=== PATIENT | female | born 2000 | race Caucasian/White ===

== ENCOUNTER → 2021-04-21 | Outpatient (CLI) | payer MEDICAID, SELFPAY ==
[2021-04-21 10:40] LABS: Absolute Lymphocyte Count 2.03 X10^3/uL (0.83-4.51); Absolute Neutrophil Count 5.7 X10^3/uL (2.0-7.7); Basophil# 0.03 X10^3/uL; Basophil% 0.4 % (0-1); Eosinophil# 0.09 X10^3/uL; Eosinophils% 1.1 % (0-5); Hemoglobin 15.4 g/dL (12.0-15.0); Lymphocyte # 2.03 X10^3/ul (0.83-4.51); Lymphocyte % 24.7 % (19-41); Mean Corp Hgb Conc 31.4 g/dL (32-36); Mean Corpuscular Hgb 26.5 pg (27.0-32.0); Mean Corpuscular Volume 84.3 fL (81-99); Monocyte# 0.38 X10^3/uL; Monocyte% 4.6 % (0-10); NRBC Flagged by Analyzer 0 % (0-5); Neutrophil # 5.66 X10^3/uL (2.7-7.7); Platelet Count 387 K/mm3 (150-450); RBC Distribution Width SD 42.5 fl (35.1-43.9); Red Blood Count 5.81 M/mm3 (4.2-5.4); White Blood Count 8.2 K/mm3 (4.4-11.0)
[2021-04-21 11:03] LABS: Hemoglobin A1c 5.3 % (3.8-5.6)
[2021-04-21 11:12] LABS: T3 Total - Triiodothyronine 1.19 ng/mL (0.6-1.81)
[2021-04-21 11:17] LABS: ALB/GLOB Ratio 0.8 RATIO (0.9-2.4); AST(SGOT) 27 U/L (15-37); Alanine Aminotransfer ALT/SGPT 61 U/L (13-56); Albumin, Serum 3.4 g/dL (3.2-5.0); Alkaline Phosphatase 112 U/L (45-117); Anion Gap 6 (5-15); BUN 13 mg/dL (7-18); BUN/Creat Ratio 21.9 RATIO (10-20); Calcium,Total 9.1 mg/dL (8.5-10.1); Chloride 108 mmol/L (98-107); Cholesterol 175 mg/dL (200); Creatinine, Serum 0.59 mg/dL (0.55-1.02); EST Glomerular Filtration Rate 136 mL/min (>60); Est Glom Filt Rate - Afr Amer 164 mL/min (>60); Globulin 4.5 g/dL (2.2-4.2); Glucose 89 mg/dL (74-106); High Density Lipoprotein 36 mg/dL; Potassium 3.9 mmol/L (3.5-5.1); Protein, Total 7.9 g/dL (6.4-8.2); Sodium Level 140 mmol/L (136-145); T4 Total, Thyroxin 10.9 ug/dL (4.8-13.9); Thyroid Stim Hormone (TSH) 0.64 uIU/mL (0.358-3.74); Triglycerides 138 mg/dL; Very Low Density Lipoprotein 28 mg/dL (5-40)
== END | disposition home or self-care (01) ==
LOC: LABSPEC 09:53
PROVIDERS: PCP Pediatrics
DX: F32.3 Major depressive disorder, single episode, severe with psychotic features (principal); Z79.899 Other long term (current) drug therapy
CPT/HCPCS: 36415; 80053; 80061; 83036; 84436; 84443; 84480; 85025

== ENCOUNTER 2021-10-10 19:39 | Emergency (ER) | payer MEDICAID, OTHER, SELFPAY ==
[2021-10-10 19:40] VITALS: BP 127/75; PULSE 78; RESP 18; TEMP 36.2; O2SAT 99; BMI 38.3
--- NOTE | 2021-10-10 20:19 | EX.ED.DYSGE1 ---
HPI History of Present Illness Chief Complaint: Syncope Informant: patient and parent Onset/Context/Timing Onset: Today Context: Sudden Onset PFSH PFSH Medical History (Updated 10/10/21 @ 19:57 by Kandy Perla) Anxiety Cerebral palsy Panic disorder Allergy/AdvReac Type Severity Reaction Status Date / Time carbamazepine [From Tegretol] Allergy NEEDS Verified 10/10/21 19:48 FOLLOW-UP phenytoin [From Dilantin] Allergy NEEDS Verified 10/10/21 19:48 FOLLOW-UP Surgical History (Updated 10/10/21 @ 19:57 by Kandy Perla) SIX SIGMA PROJECT MANAGER (ventriculoperitoneal) shunt status Social History Smoking Status: Never smoker EXAM Physical Exam Const Vital Signs: 10/10/21 19:40 10/10/21 19:50 Temperature 97.1 F L Temperature Source Temporal Pulse Rate 78 Respiratory Rate 18 Respiratory Effort Normal Non-Labored Respiratory Pattern Normal Blood Pressure 127/75 H Blood Pressure Mean 92 Pulse Ox 99 Oxygen Delivery Method Room Air Discharge Plan Triage Chief Complaint: Syncope ED Provider: Zuleima Botello Dx/Rx/DC Orders Primary Care Provider: Earlene Jones
--- NOTE | 2021-10-10 20:24 | CT_ITS ---
STUDY: CT BRAIN WITHOUT CONTRAST REASON FOR EXAM: Female, 21 years old. Headache RADIATION DOSAGE (If Supplied By Facility): CTDIvol = ( 44.99 ) mGy, DLP = ( 846.73 ) mGycm TECHNIQUE: Transaxial CT imaging of the brain was performed without administration of intravenous contrast material. Individualized dose optimization techniques were used for this CT. COMPARISON: No relevant priors. FINDINGS: 2 separate ENTRY LEVEL MECHANICAL ENGINEER shunts are noted both entering the skull in the right temporal region, the other in the left frontal region. No shunt kink or disruption noted. Normal soft tissue structures. Normal calvarium. Since there are no previous studies available for comparison, I cannot determine if the ventricles have changed in size over time. 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 No acute hemorrhage midline shift or mass effect. There are no findings of an acute ischemic infarction. Normal visualized paranasal sinuses. 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
--- NOTE | 2021-10-10 20:24 | RAD_ITS ---
STUDY: X-RAY - ABDOMEN/PELVIS REASON FOR EXAM: Female, 21 years old. vp research shunt TECHNIQUE: Frontal view COMPARISON: None. FINDINGS: There is an unremarkable bowel gas pattern. There is no demonstrated free abdominal air. There is a shunt catheter extending to the pelvis. Normal soft tissue structures. Normal visualized osseous structures. RAD/Abdomen Single View IMPRESSION: No acute pathology of the abdomen and pelvis. Electronically Signed: Michael Barber DO at 21:44 EDT ,
[2021-10-10 20:46] LABS: Absolute Neutrophil Count 15.4 X10^3/uL (2.0-7.7); Basophil# 0.03 X10^3/uL; Basophil% 0.2 % (0-1); Hematocrit 43.6 % (37-47); Hemoglobin 14.5 g/dL (12.0-15.0); Lymphocyte % 5.4 % (19-41); Mean Corp Hgb Conc 33.3 g/dL (32-36); Mean Corpuscular Hgb 25.6 pg (27.0-32.0); Mean Corpuscular Volume 76.9 fL (81-99); Mean Platelet Vol. 10.7 fl (6.2-12.0); Monocyte# 0.35 X10^3/uL; Monocyte% 2.1 % (0-10); NRBC Flagged by Analyzer 0 % (0-5); Neutrophil # 15.37 X10^3/uL (2.7-7.7); Neutrophil % 91.9 % (47-70); Platelet Count 503 K/mm3 (150-450); RBC Distribution Width CV 14.5 % (11.6-14.6); RBC Distribution Width SD 39.5 fl (35.1-43.9); Red Blood Count 5.67 M/mm3 (4.2-5.4); White Blood Count 16.7 K/mm3 (4.4-11.0)
[2021-10-10 21:05] LABS: Anion Gap 8 (5-15); BUN 10 mg/dL (7-18); BUN/Creat Ratio 13.6 RATIO (10-20); Calcium,Total 9.7 mg/dL (8.5-10.1); Chloride 106 mmol/L (98-107); Creatinine, Serum 0.74 mg/dL (0.55-1.02); EST Glomerular Filtration Rate 105 mL/min (>60); Est Glom Filt Rate - Afr Amer 128 mL/min (>60); Estimated Creatinine Clearance 95.11 ml/min; Glucose 216 mg/dL (74-106); Potassium 5.4 mmol/L (3.5-5.1); Sodium Level 136 mmol/L (136-145)
--- NOTE | 2021-10-10 21:05 | RAD_ITS ---
STUDY: X-RAY CHEST REASON FOR EXAM: Female, 21 years old. vp human resources shunt TECHNIQUE: Frontal and lateral views COMPARISON: None. FINDINGS: There is a shunt catheter along the right hemithorax. The lungs are clear and expanded. There is no demonstrated pleural abnormality. Normal size heart. Normal mediastinum and jackie. Normal visualized pulmonary arteries. Normal visualized aortic arch and descending thoracic aorta. Normal visualized thoracic spine. Normal visualized ribs, clavicles, and shoulders. There is no demonstrated abnormality of the visualized soft tissue structures of the upper abdomen. RAD/Chest PA and Lateral IMPRESSION: Normal x-ray examination of the chest. Electronically Signed: Michael Barber DO at 21:43 EDT Reading Location ID and State: [facility] / [place] Tel [phone], Service support ,
--- NOTE | 2021-10-10 21:07 | EDS_ITS ---
HPI <Dr. Zuleima Botello MD - Last Filed: 10/10/21 23:58> History of Present Illness Chief Complaint: Syncope <MAURICIO LIM - Last Filed: 10/10/21 23:04> History of Present Illness Informant: patient and parent Onset/Context/Timing Onset: Today Narrative Narrative: Patient presents by EMS following unresponsive episode just prior to arrival. Per mother, just as she was putting the patient to bed the patient began shaking her legs for approximately 30 seconds which was accompanied by nonresponsiveness which lasted 10 minutes following that episode. Per the mother the patient has no history of seizures. Patient states she woke up this morning and ate breakfast. The patient vomited following breakfast and has not felt well since. Patient has had decreased oral intake today, but denies other complaints. Patient denies headache, fever chills. Patient's mother does report recent stress at home with father who is ill and patient's power chair broke. This has caused the patient to have increased panic episodes this week, with 3 episodes today. PFSH <Dr. Zuleima Botello MD - Last Filed: 10/10/21 23:58> PFS Medical History Anxiety Cerebral palsy Panic disorder Home Medications baclofen 20 mg PO TID 10/10/21 [History Last Taken Unknown] fluoxetine 20 mg PO DAILY 10/10/21 [History Last Taken Unknown] hydroxyzine HCl 5 mg PO TID 10/10/21 [History Last Taken Unknown] Allergy/AdvReac Type Severity Reaction Status Date / Time carbamazepine [From Tegretol] Allergy NEEDS Verified 10/10/21 19:48 FOLLOW-UP phenytoin [From Dilantin] Allergy NEEDS Verified 10/10/21 19:48 FOLLOW-UP Surgical History CLASS A REGIONAL DRIVERS (ventriculoperitoneal) shunt status Social History Smoking Status: Never smoker <MAURICIO LIM - Last Filed: 10/10/21 23:04> ROS ED Constitutional Constitutional ED: Reports other Details: Malaise ; Denies chills, fever(s) or sweats Eyes Eyes: Denies change in vision ENT ENT ED: Denies ear pain, rhinorrhea or sore throat Cardiovascular Cardiovascular: Denies chest pain Respiratory/Chest Respiratory/Chest: Denies cough or dyspnea Gastrointestinal Gastrointestinal: Reports nausea and vomiting; Denies abdominal pain Genitourinary Genitourinary ED: Reports LMP (females 10-50) Details: Comment: (10/04/21) and other Details: patient is incontinent of both urine and stool. Musculoskeletal Musculoskeletal: Denies myalgias Integumentary Denies rash Neurologic Neurologic: Denies headache(s) or weakness Psychiatric Psychiatric: Reports anxiety; Denies depression EXAM <Dr. Zuleima Botello MD - Last Filed: 10/10/21 23:58> Physical Exam Const Vital Signs: 10/10/21 19:40 10/10/21 19:50 10/10/21 21:46 Temperature 97.1 F L Temperature Source Temporal Pulse Rate 78 79 Respiratory Rate 18 18 Respiratory Effort Normal Non-Labored Respiratory Pattern Normal Blood Pressure 127/75 H 123/87 H Blood Pressure Mean 92 99 Pulse Ox 99 100 Oxygen Delivery Method Room Air Room Air 10/10/21 23:28 Temperature Temperature Source Pulse Rate 108 H Respiratory Rate 18 Respiratory Effort Respiratory Pattern Blood Pressure 122/86 H Blood Pressure Mean Pulse Ox 96 Oxygen Delivery Method <MAURICIO LIM - Last Filed: 10/10/21 23:04> Physical Exam Const Vital Signs: 10/10/21 19:40 10/10/21 19:50 10/10/21 21:46 Temperature 97.1 F L Temperature Source Temporal Pulse Rate 78 79 Respiratory Rate 18 18 Respiratory Effort Normal Non-Labored Respiratory Pattern Normal Blood Pressure 127/75 H 123/87 H Blood Pressure Mean 92 99 Pulse Ox 99 100 Oxygen Delivery Method Room Air Room Air 10/10/21 23:28 Temperature Temperature Source Pulse Rate 108 H Respiratory Rate 18 Respiratory Effort Respiratory Pattern Blood Pressure 122/86 H Blood Pressure Mean Pulse Ox 96 Oxygen Delivery Method Positive well nourished and well developed General Appearance ED: well developed HEENT Reports moist mucous membranes Negative for trauma or tenderness Eyes PERRL and EOMs intact bilaterally Eyes Narrative: Redness inferior to right eye. Per mother, this is being treated by [facility] for 2 months now. Neck no lymphadenopathy and supple Chest Wall inspection of chest normal and palpation of chest normal Resp normal respiratory effort and clear to auscultation bilaterally Cardio regular rate and regular rhythm GI normal to inspection, nondistended, normoactive bowel sounds Palpation: soft Narrative: No suprapubic tenderness. Back/Spine no CVA tenderness Extremity normal to inspection Neuro oriented x3 Sensorium / Orientation: alert Psych mental status grossly normal Skin no rashes or lesions noted [facility] <Dr. Zuleima Botello MD - Last Filed: 10/10/21 23:58> [facility] Lab Data Labs: Laboratory Results - last 24 hr 10/10/21 10/10/21 10/10/21 20:37 20:37 20:37 WBC 16.7 H RBC 5.67 H Hgb 14.5 Hct 43.6 MCV 76.9 L MCH 25.6 L MCHC 33.3 RDW Std Deviation 39.5 RDW Coeff of Marina 14.5 Plt Count 503 H MPV 10.7 Immature Gran % (Auto) 0.400 Neut % (Auto) 91.9 H Lymph % (Auto) 5.4 L [place] % (Auto) 2.1 Eos % (Auto) 0.0 Baso % (Auto) 0.2 Absolute Neuts (auto) 15.4 H Absolute Lymphs (auto) 0.90 Nucleated RBC % 0 Sodium 136 Potassium 5.4 H Chloride 106 Carbon Dioxide 22.0 Anion Gap 8 BUN 10 Creatinine 0.74 Estim Creat Clear Calc 95.11 Est GFR (MDRD) Af Amer 128 Est GFR (MDRD) Non-Af 105 BUN/Creatinine Ratio 13.6 Glucose 216 H Calcium 9.7 Serum , Qual NEGATIVE Radiography Diagnostic Testing: Clinical Impression(s) from Imaging Studies Brain CT 10/10/21 20:24 IMPRESSION: 2 separate CLASS A REGIONAL DRIVERS shunt tubes noted in satisfactory position No acute hemorrhage midline shift or mass effect 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 Electronically Signed: Michael Barber DO at 21:44 EDT , Chest X-Ray 10/10/21 21:05 IMPRESSION: Normal x-ray examination of the chest. Electronically Signed: Michael Barber DO at 21:43 EDT , Treatment and Re-Evaluation Narrative: Patient seen and evaluated with EDITOR IN CHIEF NEWSPAPER student. I personally interviewed and examined the patient. I was involved in all aspects of patient's orders, interpretation of results, and treatment. Patient presents via EMS after syncopal episode with possible seizure activity. Mother states patient has frequent syncope with panic attacks and anxiety. There has been increase stressors in the home recently. Ashly mom put patient to bed and laid her prone. She had about 30 seconds of leg twitching followed by a 10-minute period of decreased responsiveness. On arrival to the emergency room patient is alert and at baseline. Patient sitting upright in bed no acute distress. Head and neck examination with chronic changes. No acute trauma. Heart is slightly tachycardic and regular. Lung sounds are clear. Abdomen is soft nontender. Lower extremity examination reveals muscle wasting. Patient sent for CT scan of the head as well as CLASS A REGIONAL DRIVERS shunt series. Lab work obtained. CT scan reveals no acute abnormalities with function of CLASS A REGIONAL DRIVERS shunt. Chest and abdominal x-ray per my interpretation reveals the shunt line to be in good position with no abnormalities. Lab work significant only for white count of 16. This may be reactive from potential seizure. Long conversation was had with mother and patient at bedside. She is at baseline currently. We do not know at this time whether this was potential syncope with clonic activity versus new onset seizure. Mother feels comfortable caring for her at home and will talk with the patient's neurosurgeon tomorrow to determine what further work-up needs to be performed. Patient given 1 dose of Ativan here to help with her anxiety. <MAURICIO LIM - Last Filed: 10/10/21 23:04> [facility] Narrative Medical decision making narrative: Patient placed on cardiac cath lab manager. CBC, BMP, serum hCG, and shunt series ordered with CT of the head ordered. Lab Data Attestation: I reviewed the patient's lab results. Labs: Laboratory Results - last 24 hr 10/10/21 10/10/21 10/10/21 20:37 20:37 20:37 WBC 16.7 H RBC 5.67 H Hgb 14.5 Hct 43.6 MCV 76.9 L MCH 25.6 L MCHC 33.3 RDW Std Deviation 39.5 RDW Coeff of [place] 14.5 Plt Count 503 H MPV 10.7 Immature Gran % (Auto) 0.400 Neut % (Auto) 91.9 H Lymph % (Auto) 5.4 L [place] % (Auto) 2.1 Eos % (Auto) 0.0 Baso % (Auto) 0.2 Absolute Neuts (auto) 15.4 H Absolute Lymphs (auto) 0.90 Nucleated RBC % 0 Sodium 136 Potassium 5.4 H Chloride 106 Carbon Dioxide 22.0 Anion Gap 8 BUN 10 Creatinine 0.74 Estim Creat Clear Calc 95.11 Est GFR (MDRD) Af Amer 128 Est GFR (MDRD) Non-Af 105 BUN/Creatinine Ratio 13.6 Glucose 216 H Calcium 9.7 Serum , Qual NEGATIVE Radiography Diagnostic Testing: Clinical Impression(s) from Imaging Studies Brain CT 10/10/21 20:24 IMPRESSION: 2 separate CLASS A REGIONAL DRIVERS shunt tubes noted in satisfactory position No acute hemorrhage midline shift or mass effect 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 Electronically Signed: Michael Barber DO at 21:44 EDT , Chest X-Ray 10/10/21 21:05 IMPRESSION: Normal x-ray examination of the chest. Electronically Signed: Michael Barber DO at 21:43 EDT , Treatment and Re-Evaluation Narrative: Brain CT, KUB x-ray, and chest x-ray show no acute abnormality or shunt dysfunction. BMP shows potassium of 5.4 but hemolysis noted on specimen. White blood cell count elevated on CBC at 16.7. Urinalysis ordered. Per nursing staff, multiple attempts at straight cath unsuccessful. On reevaluation, patient is resting comfortably in the bed. Imaging and blood work results discussed with patient and mother. Discharge Plan Triage Chief Complaint: Syncope ED Provider: Zuleima Botello Dx/Rx/DC Orders Clinical Impression: Seizure Instructions: ED Seizure New Onset Unknown ... Prescriptions: No Action baclofen 20 mg tablet 20 mg PO TID RF: 0 fluoxetine 20 mg capsule 20 mg PO DAILY RF: 0 hydroxyzine HCl 10 mg/5 mL solution 5 mg PO TID RF: 0 Primary Care Provider: Earlene Jones Referrals: Earlene Jones MD [Primary Care Provider] - Activity Restrictions/Additional Instructions: As discussed, please follow-up with your neurosurgeon by phone on Monday. Disposition Disposition: Home, Self Care Discharge Date/Time: 10/10/21 23:42
[2021-10-10 21:08] LABS: Internal QC Validated? YES +Cl - CLEAR BKGD; Pregnancy, Serum, hCG Quali. NEGATIVE Negative
[2021-10-10 21:46] VITALS: BP 123/87; PULSE 79; RESP 18; O2SAT 100
--- NOTE | 2021-10-10 22:51 | NURSING ---
Attempted to straight cath Yue and I was unsuccessful. mavis notified. Pt heart rate up into 160. Pt very anxious
[2021-10-10] MEDS: LORazepam 0.5 MG Tablet PO (23:25)
[2021-10-10 23:28] VITALS: BP 122/86; PULSE 108; RESP 18; O2SAT 96
== END 2021-10-10 23:42 | disposition home or self-care (01) ==
PROVIDERS: Emergency Provider Emergency Medicine; PCP Pediatrics; Visit Provider Emergency Medicine
DX: R40.4 Transient alteration of awareness (principal); G80.9 Cerebral palsy, unspecified; F41.0 Panic disorder [episodic paroxysmal anxiety]; Z98.2 Presence of cerebrospinal fluid drainage device
CPT/HCPCS: 70450; 71046; 74018; 80048; 84703; 85025; 99285; J7030; A4216

== ENCOUNTER → 2021-12-24 | Outpatient (CLI) | payer MEDICARE, MEDICAID, OTHER, SELFPAY ==
[2021-12-24 12:09] LABS: Absolute Lymphocyte Count 2.22 X10^3/uL (0.83-4.51); Absolute Neutrophil Count 4.9 X10^3/uL (2.0-7.7); Basophil# 0.03 X10^3/uL; Basophil% 0.4 % (0-1); Eosinophil# 0.15 X10^3/uL; Eosinophils% 1.9 % (0-5); Hematocrit 42.9 % (37-47); Hemoglobin 13.7 g/dL (12.0-15.0); Lymphocyte # 2.22 X10^3/ul (0.83-4.51); Lymphocyte % 28.8 % (19-41); Mean Corp Hgb Conc 31.9 g/dL (32-36); Mean Corpuscular Hgb 25.9 pg (27.0-32.0); Mean Corpuscular Volume 81.1 fL (81-99); Mean Platelet Vol. 11.8 fl (6.2-12.0); Monocyte# 0.41 X10^3/uL; Monocyte% 5.3 % (0-10); NRBC Flagged by Analyzer 0 % (0-5); Neutrophil # 4.87 X10^3/uL (2.7-7.7); Neutrophil % 63.3 % (47-70); POSITIVE COUNT YES; Platelet Count 321 K/mm3 (150-450); RBC Distribution Width CV 14.6 % (11.6-14.6); RBC Distribution Width SD 42.8 fl (35.1-43.9); Red Blood Count 5.29 M/mm3 (4.2-5.4); White Blood Count 7.7 K/mm3 (4.4-11.0)
[2021-12-24 12:32] LABS: Differential Indicated SCAN CRITERIA MET; Platelet Estimate ADEQUATE (ADEQ); Platelet Morphology LARGE; Red Cell Morphology NORM C+C NORMAL (NORM C&C)
[2021-12-24 12:35] LABS: ALB/GLOB Ratio 0.8 RATIO (0.9-2.4); AST(SGOT) 19 U/L (15-37); Alanine Aminotransfer ALT/SGPT 40 U/L (13-56); Albumin, Serum 3.2 g/dL (3.2-5.0); Alkaline Phosphatase 103 U/L (45-117); Anion Gap 7 (5-15); BUN 15 mg/dL (7-18); BUN/Creat Ratio 24.2 RATIO (10-20); Chloride 110 mmol/L (98-107); Creatinine, Serum 0.62 mg/dL (0.55-1.02); EST Glomerular Filtration Rate 129 mL/min (>60); Est Glom Filt Rate - Afr Amer 156 mL/min (>60); Globulin 4.2 g/dL (2.2-4.2); Glucose 168 mg/dL (74-106); Potassium 3.9 mmol/L (3.5-5.1); Protein, Total 7.4 g/dL (6.4-8.2); Sodium Level 139 mmol/L (136-145)
[2021-12-24 17:35] LABS: Hemoglobin A1c 5.5 % (3.8-5.6)
== END | disposition home or self-care (01) ==
LOC: BIMLAB 11:28
PROVIDERS: PCP Internal Medicine; Referring Provider Internal Medicine; Visit Provider Internal Medicine
DX: F32.A Depression, unspecified (principal); F41.9 Anxiety disorder, unspecified; R73.9 Hyperglycemia, unspecified
CPT/HCPCS: 36415; 80053; 83036; 85025

== ENCOUNTER 2022-01-19 14:15 | Outpatient (RCR) | payer MEDICARE, MEDICAID, SELFPAY ==
--- NOTE | 2022-01-19 15:44 | HP.PTEVAL_ITS ---
Patient's Visit Information CONCHIS MOCK is a 21 year old F referred to Physical Therapy by MAXIME Arreola with a diagnosis of OTHER MALAISE. Date of Evaluation: 01/19/22 Physical Therapist: Mayo Padilla PT, Cert MDT, [facility] - Visit Plan Frequency: 1 visit Plan: This patient will benefit from PMD to maximize I with current w/c patient is own grown . This patient is non-ambulatory ,and is dependent with bed mobility supine -sit, transfers dependent with Darryl lift ,BLE lower extremity spasticity with decrease ROM and no muscle strength, along with contractures of elbows and legs ,absent sitting balance . Patient unable to propel w/c due to weakness and ROM BUE . PMD will significantly improve patients ability to participate in MRDL's and use in the home. The patient has mental and capabilities to safely operate a power wheelchair. - Subjective This 21 y/o female presents to physical therapy with w/c evaluation. Patient seen DR recently needing new power wheelchair due to worn out and outgrown power w/c. Patient has cerebral palsy since and is non ambulatory . Patient has Darryl lift with transfers and unable to stand with standing walker. Patient is dependent with bathing ,dressing and self hygiene. Patient has walk in shower shower chair. Patient lives in 2 story farm house with ramp. Patient involved [employer] and Monday . Service Claudine has a friend. Patient had prior PT and aquatic therapy. Patient family does all cooking, cleaning. Patient attends [employer]. Patient has manual w/c, Darryl lift , shower chair. Patient denies paresthesia/tingling. Patient has occasional lumbar pain. Patient has no pressure sore. Patient is incontinence. Patient will benefit from PMD to maximize function. SOCIAL: lives with family - Objective POSTURE: posterior pelvic tilt ,asymmetrical leg Length. Patient is 5'3' and 210 #. SIITING: balance absent. MOBILITY: non-ambulatory ,uses power w/c I. TRANFSERS: Darryl lift. BED MOBILITY: supine -supine dependent. AROM BUE : shoulder flexion 90 degrees , abduction 80 degrees , elbow extension -20 degrees ,flexion 105 degrees. PROM BLE: knee flexion right 90 degrees ,extension 35 degrees bilateral ,left 80 degrees ,hip flexion 80 degrees , hip abduction 10 ,DF -20 degrees. MMT: BUE 3+/5 EXCEPT SHOULDER 3-/4. BLE : 0/5. NEURO: BLE spasticity - Goals Goal 1:: Patient will benefit from new PMD to maximize function I in home for ADLS' - Rehabilitation Potential Physical Therapy Diagnosis: This patient will benefit from PMD to maximize I with current w/c patient is own grown . This patient is non-ambulatory ,and is dependent with bed mobility supine -sit, transfers dependent with Darryl lift ,BLE lower extremity spasticity with decrease ROM and no muscle strength, along with contractures of elbows and legs ,absent sitting balance . Patient unable to propel w/c due to weakness and ROM BUE . PMD will significantly improve patients ability to participate in MRDL's and use in the home. The patient has mental and capabilities to safely operate a power wheelchair. Rehabilitation Potential: Fair - Anticipated Interventions Patient/Client Instruction: Educate patient on: Condition, Plan of Care For the Purpose of:: Other Other: PMD Thank you for the opportunity to evaluate your patient. For Medicare and Medicare HMO plans, please review the plan of care and approve it. It will need to be FAXED BACK to us at [phone] for Medicare purposes. For Medicare only, by signing this I certify the plan of care. Please let me know if there are questions or concerns regarding this plan of care. Physician Signature: Date:
== END 2022-01-19 19:00 | disposition home or self-care (01) ==
LOC: PT 14:15
PROVIDERS: PCP Internal Medicine; Referring Provider Nurse Practitioner Family; Visit Provider Nurse Practitioner Family
DX: R53.81 Other malaise (principal)
CPT/HCPCS: 97163

== ENCOUNTER → 2023-10-30 | Outpatient (CLI) | payer MEDICARE, MEDICAID, SELFPAY ==
[2023-10-30 16:52] LABS: Absolute Lymphocyte Count 3.06 X10^3/uL (0.83-4.51); Absolute Neutrophil Count 7.7 X10^3/uL (2.0-7.7); Basophil# 0.05 X10^3/uL; Basophil% 0.4 % (0-1); Eosinophil# 0.21 X10^3/uL; Eosinophils% 1.8 % (0-5); Hematocrit 45.8 % (37-47); Hemoglobin 14.6 g/dL (12.0-15.0); Lymphocyte # 3.06 X10^3/ul (0.83-4.51); Lymphocyte % 26.2 % (19-41); Mean Corp Hgb Conc 31.9 g/dL (32-36); Mean Corpuscular Volume 81.5 fL (81-99); Mean Platelet Vol. 11.5 fl (6.2-12.0); Monocyte# 0.61 X10^3/uL; Monocyte% 5.2 % (0-10); NRBC Flagged by Analyzer 0 % (0-5); Neutrophil # 7.65 X10^3/uL (2.7-7.7); Neutrophil % 65.6 % (47-70); Platelet Count 538 K/mm3 (150-450); RBC Distribution Width CV 13.5 % (11.6-14.6); RBC Distribution Width SD 39.8 fl (35.1-43.9); Red Blood Count 5.62 M/mm3 (4.2-5.4); White Blood Count 11.7 K/mm3 (4.4-11.0)
[2023-10-30 17:10] LABS: ALB/GLOB Ratio 0.6 RATIO (0.9-2.4); AST(SGOT) 15 U/L (15-37); Alanine Aminotransfer ALT/SGPT 41 U/L (13-56); Albumin, Serum 3.2 g/dL (3.2-5.0); Alkaline Phosphatase 110 U/L (45-117); Anion Gap 6 (5-15); BUN 13 mg/dL (7-18); BUN/Creat Ratio 25.5 RATIO (10-20); Calcium,Total 9.4 mg/dL (8.5-10.1); Chloride 108 mmol/L (98-107); Cholesterol 164 mg/dL (200); Creatinine, Serum 0.51 mg/dL (0.55-1.02); EST Glomerular Filtration Rate 159 mL/min (>60); Est Glom Filt Rate - Afr Amer 192 mL/min (>60); Globulin 5.1 g/dL (2.2-4.2); Glucose 89 mg/dL (74-106); High Density Lipoprotein 35 mg/dL; Potassium 3.8 mmol/L (3.5-5.1); Protein, Total 8.3 g/dL (6.4-8.2); Sodium Level 138 mmol/L (136-145); T4 Free Direct 1.59 ng/dL (0.76-1.46); Thyroid Stim Hormone (TSH) 0.42 uIU/mL (0.358-3.74); Triglycerides 137 mg/dL; Very Low Density Lipoprotein 27 mg/dL (5-40)
[2023-10-30 17:53] LABS: Hemoglobin A1c 5.2 % (3.8-5.6)
[2023-10-31 09:27] LABS: Ferritin 86 ng/mL (8-252); Iron 29 ug/dL (50-170); Iron Binding Capacity,Total 331 ug/dL (250-450)
== END | disposition home or self-care (01) ==
LOC: BIMLAB 14:58
PROVIDERS: PCP Internal Medicine; Visit Provider Internal Medicine
DX: F32.A Depression, unspecified (principal); F41.9 Anxiety disorder, unspecified; R71.8 Other abnormality of red blood cells; R73.9 Hyperglycemia, unspecified; E66.9 Obesity, unspecified
CPT/HCPCS: 36415; 80053; 80061; 82728; 83036; 83540; 83550; 84439; 84443; 85025

== ENCOUNTER → 2024-05-10 | Outpatient (CLI) | payer MEDICARE, MEDICAID, SELFPAY ==
[2024-05-10 12:37] LABS: Absolute Lymphocyte Count 1.93 X10^3/uL (0.83-4.51); Absolute Neutrophil Count 3.7 X10^3/uL (2.0-7.7); Basophil# 0.03 X10^3/uL; Basophil% 0.5 % (0-1); Eosinophil# 0.14 X10^3/uL; Eosinophils% 2.3 % (0-5); Hematocrit 46.4 % (37-47); Hemoglobin 14.6 g/dL (12.0-15.0); Lymphocyte # 1.93 X10^3/ul (0.83-4.51); Lymphocyte % 31.9 % (19-41); Mean Corp Hgb Conc 31.5 g/dL (32-36); Mean Corpuscular Hgb 26.5 pg (27.0-32.0); Mean Corpuscular Volume 84.2 fL (81-99); Mean Platelet Vol. 12.2 fl (6.2-12.0); Monocyte# 0.25 X10^3/uL; Monocyte% 4.1 % (0-10); NRBC Flagged by Analyzer 0 % (0-5); Neutrophil # 3.68 X10^3/uL (2.7-7.7); Neutrophil % 60.9 % (47-70); Platelet Count 330 K/mm3 (150-450); RBC Distribution Width CV 13.4 % (11.6-14.6); RBC Distribution Width SD 41.7 fl (35.1-43.9); Red Blood Count 5.51 M/mm3 (4.2-5.4); White Blood Count 6.1 K/mm3 (4.4-11.0)
[2024-05-10 13:37] LABS: ALB/GLOB Ratio 0.9 RATIO (0.9-2.4); AST(SGOT) 15 U/L (15-37); Alanine Aminotransfer ALT/SGPT 38 U/L (13-56); Albumin, Serum 3.4 g/dL (3.2-5.0); Alkaline Phosphatase 108 U/L (45-117); Anion Gap 6 (5-15); BUN 14 mg/dL (7-18); BUN/Creat Ratio 27.2 RATIO (10-20); Calcium,Total 8.8 mg/dL (8.5-10.1); Chloride 110 mmol/L (98-107); Creatinine, Serum 0.51 mg/dL (0.55-1.02); EST Glomerular Filtration Rate 156 mL/min (>60); Est Glom Filt Rate - Afr Amer 189 mL/min (>60); Ferritin 24 ng/mL (8-252); Globulin 3.9 g/dL (2.2-4.2); Glucose 130 mg/dL (74-106); Iron 42 ug/dL (50-170); Iron Binding Capacity,Total 377 ug/dL (250-450); Protein, Total 7.3 g/dL (6.4-8.2); Sodium Level 142 mmol/L (136-145)
== END | disposition home or self-care (01) ==
LOC: BIMLAB 11:13
PROVIDERS: PCP Internal Medicine; Referring Provider Internal Medicine; Visit Provider Internal Medicine
DX: F41.9 Anxiety disorder, unspecified (principal); F32.A Depression, unspecified; R71.8 Other abnormality of red blood cells
CPT/HCPCS: 36415; 80053; 82728; 83540; 83550; 85025